=== PATIENT | female | born 1990 | race Hispanic/Latino ===

== ENCOUNTER 2019-10-09 10:15 | Emergency (ER) | payer SELFPAY ==
[~2019-10-09] VITALS: Ht 154.9 cm; Wt 68.0 kg
[2019-10-09 10:23] VITALS: BP 139/87
--- NOTE | 2019-10-09 11:02 | Emergency Department Note ---
History of Present Illnes History of Present Illness Chief Complaint: Chest Pain History of Present Illness This is a 29 year old female c/o left upper chest pain that radiates to left upper back since yesterday denies drug use denies etoh never smoked denies sob denies trauma denies lifting anything heavy states she works in [employer]. Historian: Patient Arrival Mode: Car Manifest/Order Organizer Print Orders Required: No Onset (how long ago): day(s) (2) Location: LEFT CHEST, NECK, LEFT UPPER BACK Quality: PAIN Radiation: non-radiation Severity: moderate Onset quality: gradual Timing of current episode: constant Progression: worsening Chronicity: new Context: recent illness Relieving factors: rest Exacerbating factors: other (MOVEMENT OF NECK/TORSO) Associated symptoms: denies other symptoms Treatments prior to arrival: none Past Medical/Family History Physician Review I have reviewed the patient's past medical and family history. Any updates have been documented here. Past Medical History Recent Fever: No Clinical Suspicion of Infectio: No New/Unexplained Change in Ment: No Past Medical History: None Past Surgical History: None Social History Smoking Cessation: Never Smoker Counseling Performed: No Alcohol Use: None Any Illegal Drug Use: No TB Exposure/Symptoms: No Physically hurt or threatened: No Other Last Tetanus: utd Any Pre-Existing Lines (PICC,: No Is patient up to date on immun: Yes Last Flu: utd Last Pneumovax: ood Review of Systems Review of Systems Constitutional: no symptoms EENTM: no symptoms Cardiovascular: no symptoms Respiratory: no symptoms; cough, dyspnea Gastrointestinal: no symptoms Genitourinary: no symptoms Musculoskeletal: as per HPI Neurological: no symptoms Psychological: no symptoms Endocrine: no symptoms Hematological/Lymphatic: no symptoms Review of other systems All other systems reviewed and negative. Physical Exam Related Data Allergies: Coded Allergies: No Known Allergies (Unverified , 10/09/19) Triage Vital Signs Vital Signs Date Time Temp Pulse Resp B/P (MAP) Pulse Ox O2 Delivery O2 Flow Rate FiO2 10/09/19 10:16 97.4 75 18 139/87 100 Physical Exam CONSTITUTIONAL Constitutional: well-developed, well-nourished HENT HENT: normocephalic, atraumatic, oropharynx clear/moist, nose normal HENT L/R: left ext ear normal, right ext ear normal EYES Eyes: PERRL, conjunctivae normal NECK Neck: other (TORTICOLLIS WITH SPASM OF LEFT PARACERVICAL MUSCLES, NO MIDLINE TENDERNESS) PULMONARY Pulmonary: effort normal, breath sounds normal CARDIOVASCULAR Cardiovascular: regular rhythm, heart sounds normal, capillary refill normal, normal rate, other (REPODUCIBLE TENDERNESS LEFT ANTERIOR CHEST, LEFT PECTORAL MUSCLES) GASTROINTESTINAL Abdominal: soft, nontender, bowel sounds normal GENITOURINARY Genitourinary: exam deferred SKIN Skin: warm, dry MUSCULOSKELETAL Musculoskeletal: ROM normal NEUROLOGICAL Neurological: alert, oriented x 3, no gross motor or sensory deficits PSYCHOLOGICAL Psychological: mood/affect normal, judgement normal Procedures 12 Lead ECG Interpretation Manifest/Order Organizer Print Orders: Interpreted by ED physician Date: October 09, 2019 Time: 10:22 Prior BACK END ARCHITECT tracings: reviewed Rhythm: sinus rhythm Rate: normal (74) QRS axis: normal ST segments normal: Yes T waves normal: Yes Clinical Impression: normal ECG Critical Care Time Subsequent provider I assumed direction of critical care for this patient from another provider of my specialty. Assessment & Plan Assessment & Plan Final Impression: (1) Muscle spasm (2) Musculoskeletal chest pain Assessment & Plan DC HOME, [facility] Depart Disposition: HOME, SELF-CARE Last Vital Signs Date Time Temp Pulse Resp B/P (MAP) Pulse Ox O2 Delivery O2 Flow Rate FiO2 10/09/19 10:23 75 18 100 10/09/19 10:16 97.4 139/87 CODY LAMAR MD October 09, 2019 11:02
== END 2019-10-09 10:28 | disposition home or self-care (01) ==
LOC: ER 10:15
DX: R07.89 Other chest pain (principal); M62.838 Other muscle spasm; X50.0XXA Overexertion from strenuous movement or load, initial encounter; Y92.89 Other specified places as the place of occurrence of the external cause
CPT/HCPCS: 93005; 99282